=== PATIENT | female | born 1940 | race Caucasian/White ===

== ENCOUNTER 2018-05-10 10:43 | Emergency (ER) | END 2018-05-10 13:05 | disposition home or self-care (01) ==

== ENCOUNTER 2018-12-12 10:26 | Emergency (ER) | payer OTHER ==
[~2018-12-12] VITALS: Ht 154.9 cm; Wt 65.6 kg
[~2018-12-12 10:26] MED LIST: ASPI-817 PO; DOCU-144 PO; METF-849 PO; OMEP20CA16 PO; RAMI2.5C36 PO; SITA25TA3 PO; TRAM50TA2 PO; ZOC10 PO
[2018-12-12 10:27] VITALS: BP 191/77; PULSE 58; RESP 18; Ht 154.9 cm; Wt 65.6 kg
[2018-12-12] MEDS ORDERED: AZIT250T PO (11:56)
[2018-12-12] MEDS ORDERED: MED4DP PO (11:56)
[2018-12-12] MEDS ORDERED: BENZ-6 PO (11:56)
[2018-12-12] MEDS ORDERED: ALBU8.5H8 INH (11:56)
--- NOTE | 2018-12-12 12:30 | ERD ---
ER Documentation Chief Complaint Chief Complaint COUGH [id number], JUST CAME FR JAI HPI 78-year-old female presenting with a cough x1 month. Patient is returned from the [facility]. Patient was given medication in the [facility] however is unsure what it was. Denies other fevers. Denies any shortness of breath or chest pain. States she does have some productive cough with yellow sputum. Medical history of hypertension diabetes. NKDA. Surgical history denies. Up-to-date on vaccinations. Social history denies ROS All systems reviewed and are negative except as per history of present illness. Medications Home Meds Active Scripts Albuterol Sulfate* (Proair HFA*) 8.5 Gm Hfa.aer.ad, 2 PUFF INH Q4, #1 INHALER Prov:MYA BERTRAND PA-C 12/12/18 Methylprednisolone* (Medrol* DOSE PACK) 4 Mg/Dose-Pack Tab.ds.pk, 4 MG PO . DIRECTED, #1 PACKET Prov:MYA BERTRAND PA-C 12/12/18 Azithromycin* (Zithromax*) 250 Mg Tablet, 250 MG PO .ZPACK DIRECTED, #6 TAB TAKE 500 MG (2 TABS) THE FIRST DAY THEN 250 MG (1 TAB) DAYS 2-5 Prov:MYA BERTRAND PA-C 12/12/18 Benzonatate* (Tessalon Perle*) 100 Mg Capsule, 100 MG PO Q8H PRN for COUGH, #30 CAP Prov:MYA BERTRAND PA-C 12/12/18 Tramadol HCl (Tramadol HCl) 50 Mg Tablet, 50 MG PO Q6 PRN for PAIN, #20 TAB Prov:VIVIAN ABRAMS MD 05/10/18 Reported Medications Docusate Sodium* (Colace*) 100 Mg Capsule, 100 MG PO BID PRN for CONSTIPATION, #60 CAP 05/10/18 Aspirin* (Aspirin* EC) 81 Mg Tablet., 81 MG PO DAILY, TAB 05/10/18 Sitagliptin* (Januvia*) 25 Mg Tablet, 25 MG PO DAILY, #30 TAB 05/10/18 Simvastatin (Simvastatin) 10 Mg Tablet, 10 MG PO QHS, #30 TAB 05/10/18 Omeprazole* (Omeprazole*) 20 Mg Capsule.dr, 20 MG PO AC BREAKFAST, #30 CAP 05/10/18 Ramipril (Ramipril) 2.5 Mg Capsule, 2.5 MG PO DAILY, CAP 05/10/18 Metformin* (Glucophage*) 500 Mg Tab, 500 MG PO BID WITH MEALS, #90 TAB 05/10/18 Allergies Allergies: Coded Allergies: No Known Allergy (Unverified , 12/12/18) PMhx/Soc History of Surgery: No Anesthesia Reaction: No Hx Neurological Disorder: No Hx Respiratory Disorders: No Hx Cardiac Disorders: Yes (HTN) Hx Psychiatric Problems: No Hx Miscellaneous Medical Probl: No Hx Alcohol Use: No Hx Substance Use: No Hx Tobacco Use: No Smoking Status: Never smoker FmHx Family History: No diabetes, No coronary disease, No other Physical Exam Vitals Vital Signs Date Temp Pulse Resp B/P (MAP) Pulse Ox O2 O2 Flow FiO2 Time Delivery Rate 12/12/18 97.3 58 18 191/77 97 10:27 (115) Physical Exam GENERAL: The patient is well-appearing, well-nourished, in no acute distress HEENT: Atraumatic. Conjunctivae are pink. Pupils equal, round, and reactive to light. There is no scleral icterus. Tympanic membranes clear bilaterally. Oropharynx clear. No nystagmus or photophobia. NECK: C-spine is soft and supple. There is no meningismus. There is no cervical lymphadenopathy. CHEST: Clear to auscultation bilaterally. There are no rales, wheezes or rhonch i. HEART: Regular rate and rhythm. No murmurs, clicks, rubs or gallops. Procedures/MDM DIAGNOSTIC IMAGING REPORT Patient: CATHERINE NERI : 1940 Age: 78 Sex: F MR #: [id number] DOS: 12/12/18 1052 Ordering MD: CORINE BERTRAND PA-C Location: [facility] Room/Bed: PROCEDURE: XR Chest. CLINICAL INDICATION: Cough TECHNIQUE: Single AP view of the chest was obtained COMPARISON: None FINDINGS: The heart and mediastinum are within normal limits. The pulmonary vasculature are unremarkable. The aorta demonstrates atherosclerotic calcifications. There is no lung consolidation, pleural effusion or pneumothorax. Degenerative changes are seen within the thoracic spine and shoulders. There is no acute osseous abnormality. IMPRESSION: No acute disease. MDM: 78-year-old female presenting with cough. I have low suspicion for pneumonia. I have low suspicion for CHF or lung abnormality. Patient's exam is non-concerning x-ray is within normal limits. Even the duration of her cough I will treat with antibiotics. Patient is recommended to follow-up with her primary care. Patient is told symptoms change or worsen to return immediately to the ER. All questions answered at discharge Departure Diagnosis: Primary Impression: Cough Condition: Stable Patient Instructions: Cough, Chronic, Uncertain Cause, (Adult) Referrals: [facility] YOU HAVE RECEIVED A MEDICAL SCREENING EXAM AND THE RESULTS INDICATE THAT YOU DO NOT HAVE A CONDITION THAT REQUIRES URGENT TREATMENT IN THE EMERGENCY DEPARTMENT. FURTHER EVALUATION AND TREATMENT OF YOUR CONDITION CAN WAIT UNTIL YOU ARE SEEN IN YOUR DOCTORS OFFICE WITHIN THE NEXT 1-2 DAYS. IT IS YOUR RESPONSIBILITY TO MAKE AN APPOINTMENT FOR FOLOW-UP CARE. IF YOU HAVE A PRIMARY DOCTOR --you should call your primary doctor and schedule an appointment IF YOU DO NOT HAVE A PRIMARY DOCTOR YOU CAN CALL OUR PHYSICIAN REFERRAL HOTLINE AT IF YOU CAN NOT AFFORD TO SEE A PHYSICIAN YOU CAN CHOSE FROM THE FOLLOWING [facility] [id number] [facility]. [facility] [address] [facility] [facility] [address] [facility]. [facility] [address] [facility]. [facility] [phone] [address] [facility]. [facility]. [address] Additional Instructions: FOLLOW UP WITH YOUR PRIMARY CARE PHYSICIAN TOMORROW.Return to this facility if you are not improving as expected. MYA BERTRAND PA-C Dec 12, 2018 12:30
== END 2018-12-12 12:05 | disposition home or self-care (01) ==
LOC: FTE 10:26
DX: R05 Cough (principal); I10 Essential (primary) hypertension; Z79.82 Long term (current) use of aspirin; Z79.84 Long term (current) use of oral hypoglycemic drugs
CPT/HCPCS: 71045